=== PATIENT | male | born 2000 | race Caucasian/White ===

== ENCOUNTER 2022-10-10 00:50 | Emergency (ER) | payer OTHER, BC, SELFPAY ==
[2022-10-10 00:52] VITALS: BP 121/72; PULSE 82; RESP 12; TEMP 36.4; O2SAT 99
[2022-10-10] MEDS: levETIRAcetam 1000MG/NACL100ML 1,000 MG/100 ML BAG 400 MG IVPB (01:15)
--- NOTE | 2022-10-10 01:18 | ED.SEIZURE ---
HPI - Seizure General Chief Complaint: Seizure Stated Complaint: seizure Time Seen by Provider: 10/10/22 00:56 History of Present Illness HPI Narrative: Patient is a 22-year-old male with a history of seizure disorder here via EMS after he had a seizure at work. States he had an aura consistent of d?j? vu and strange smells and after that he does not remember anything. The next thing he remembers is waking up with his coworkers surrounding him. Patient takes Keppra 500 mg twice daily but states he has missed several doses, states he is only been taking 500 mg once a day and has not taken any over the past 2 days. States it makes him feel drowsy. Denies fevers, chills, nausea, vomiting, headache, tongue laceration. He has a neurologist but has not seen them for the past year or so. Related Data Allergies Allergy/AdvReac Type Severity Reaction Status Date / Time Penicillins Allergy Mild Unknown Verified 10/10/22 01:14 Cephalosporins Allergy Unknown Rash Verified 10/10/22 01:14 Review of Systems Review of Systems: Gen.: Denies fevers or chills Eyes: Denies eye pain or visual change ENT: Denies congestion Respiratory: Denies shortness of breath or cough CV: Denies chest pain or palpitations GI: Denies abdominal pain nausea, emesis or diarrhea denies burning, urgency, frequency or hematuria Musculoskeletal: Denies back pain or muscle pain Neuro: Reports seizure. Denies numbness, tingling, weakness or focal weakness Skin: Denies rash Except as documented, all other systems reviewed and negative Exam Narrative: APPEARANCE: Well appearing, no pain in distress, well-nourished. Head: Normocephalic and atraumatic. EYES: PERRLA/EOMI, conjunctivae clear NOSE: No nasal drainage EARS: External ear normal in appearance THROAT: No tongue laceration. Oropharynx is clear. Mucous membranes are moist. NECK: Supple. No adenopathy, no masses. RESPIRATORY: Airway patent, respirations nonlabored. Clear to auscultation bilaterally, no rales, rhonchi, wheezing. CARDIOVASCULAR: Regular rate and rhythm without murmurs, rubs, or gallops. ABDOMINAL: Normoactive bowel sounds. Soft, nontender, nondistended. No rebound tenderness or guarding. MUSCULOSKELETAL: Extremities are warm and well-perfused. Moves all extremities well. No edema. NEURO: Normal speech. No focal neurologic deficits. SKIN: Skin is warm and dry. No rashes. PSYCHIATRIC: Normal affect/mood.. Course Vital Signs Vital signs: Vital Signs Temperature 97.5 F L 10/10/22 00:52 Pulse Rate 82 10/10/22 00:52 Respiratory Rate 12 10/10/22 00:52 Blood Pressure 121/72 10/10/22 00:52 Pulse Oximetry 99 10/10/22 00:52 Oxygen Delivery Room Air 10/10/22 00:52 Temperature 97.5 F L 10/10/22 00:52 Pulse Rate 82 10/10/22 00:52 Respiratory Rate 12 10/10/22 00:52 Blood Pressure 121/72 10/10/22 00:52 Pulse Oximetry 99 10/10/22 00:52 Oxygen Delivery Room Air 10/10/22 00:52 MDM - Seizure MDM Narrative Medical decision making narrative: 22-year-old male with a history of epilepsy on 500 mg Keppra twice daily here after he had a seizure. States this is typical for him with his typical aura. Admits to medication noncompliance; has been only taking 500 mg at nighttime instead of twice daily and has skipped several days altogether. Patient was loaded with Keppra. He is alert and oriented and does not appear postictal. He has close outpatient follow-up with his neurologist. We discussed return precautions and he voiced understanding. Discharge Plan Discharge Clinical Impression: Focal seizure Patient Disposition: Home, Self-Care Condition: Stable Instructions: Antibiotic Form, Epilepsy (ED) Additional Instructions: You were given a loading dose of the Keppra in the emergency department. It is very important to take your medicine as prescribed, taking it twice daily to prevent seizures. Follow-up with your neurologist DON. Return
[2022-10-10 02:36] VITALS: BP 111/71; PULSE 71; RESP 19; O2SAT 100
== END 2022-10-10 02:12 | disposition home or self-care (01) ==
LOC: ANHED 01:56
PROVIDERS: Emergency Provider Physician Assistant
DX: G40.109 Localization-related (focal) (partial) symptomatic epilepsy and epileptic syndromes with simple partial seizures, not intractable, without status epilepticus (principal)
CPT/HCPCS: 96365; 99284; J1953

== ENCOUNTER 2022-10-17 16:19 | Emergency (ER) | payer BC, SELFPAY ==
--- NOTE | ~2022-10-17 | XR_ITS ---
EXAMINATION: XR ribs LT 2V w CXR 2V DATE: 10/17/2022 16:49 INDICATION: Left chest injury and pain. TECHNIQUE: Frontal and lateral views of the chest and 2 views on 4 radiographs of the left ribs were obtained. COMPARISON: Chest 2 views 03/18/2019 FINDINGS: CHEST TWO VIEWS: There is no pneumonia, pleural effusion, or pneumothorax. The heart size is normal. LEFT RIBS: There is no rib fracture. IMPRESSION: 1. No rib fracture. Reviewed, dictated and finalized at location A. IMPRESSION: 1. No rib fracture.
[2022-10-17 16:24] VITALS: BP 112/77; PULSE 56; RESP 20; TEMP 36.7; O2SAT 100
--- NOTE | 2022-10-17 16:31 | ED.GENADULT ---
HPI - General Adult General Chief complaint: Trauma Stated complaint: Left Flank Pain/Ribs Source: patient, family and RN notes reviewed History of Present Illness HPI narrative: 22 yo M presents to urgent care with mom at side. pt states a week ago, he was trying to step backward at a diagonal when he fell backwards onto a pallet. Pt states he landed on his left mid back. Pt has been having pain in this area and lateral and anterior, left, lower rib area as well. Pt presents with light bruising to the left, lateral, mid back. Pt states the pain worsens with deep inhalation or any twisting motion of his back. Denies any hematuria, fevers, chills, abdominal pain, vomiting, or head injury. Pt has been taking ibuprofen at home. Related Data Home Medications Medication Instructions Recorded Confirmed levetiracetam 500 mg tablet 1,000 mg PO HS 10/17/22 10/17/22 Allergies Allergy/AdvReac Type Severity Reaction Status Date / Time Penicillins Allergy Mild Unknown Verified 10/17/22 16:31 Cephalosporins Allergy Unknown Rash Verified 10/17/22 16:31 Review of Systems Review of Systems: CONSTITUTIONAL: Denies fever, chills, or sweats. EYES: Denies visual changes, redness, or discharge. ENT: Denies otalgia and sore throat CARDIOVASCULAR: Denies chest pain, palpitations, or edema. RESPIRATORY: Denies cough or dyspnea. GASTROINTESTINAL: Denies abdominal pain, nausea, vomiting, or diarrhea. GENITOURINARY: Denies dysuria or hematuria. SKIN: Denies rash or itching. MUSCULOSKELETAL: Left rib pain NEUROLOGIC: Denies headache, numbness, or weakness. Pertinent positives per HPI. PMFSH Comments At the time of my signature, I reviewed and agree with the nursing past medical, surgical, social, and family history. There is no relevant family history pertinent to the patient complaint. Exam Narrative: GENERAL: This is a well-nourished, well-developed patient, in no apparent distress. HEAD: normocephalic, atraumatic. EYES: Sclera clear/white. Vision is grossly intact. EARS: External ears normal, auditory canals clear and without drainage. Hearing grossly intact. NOSE: External nose normal with no obvious nasal discharge, nares without redness, no rhinorrhea. THROAT: Mucous membranes moist, posterior pharynx clear. NECK: Neck supple, non-tender without lymphadenopathy, masses or thyromegaly. CARDIOVASCULAR: Regular rate and rhythm without murmurs, gallops, or rubs. RESPIRATORY: Clear to auscultation. Breath sounds equal bilaterally. No wheezes, rales, or rhonchi. GASTROINTESTINAL: Abdomen soft, non-tender, nondistended. Bowel sounds are active. No hepato-splenomegaly, or palpable masses. No guarding. SKIN: Old, light, bruising to left mid back NEURO: awake, alert, and oriented to person, place and time. There were no obvious focal neurologic abnormalities. EXTREMITIES: No clubbing, cyanosis, or edema. No joint tenderness, effusion, or edema noted. BACK:Tender to left, mid, back. No flank tenderness. Course Course Level of Care: Express Care Visit Vital Signs Vital signs: Vital Signs Temperature 98.1 F 10/17/22 16:24 Pulse Rate 56 L 10/17/22 16:24 Respiratory Rate 20 10/17/22 16:24 Blood Pressure 112/77 10/17/22 16:24 Pulse Oximetry 100 10/17/22 16:24 Oxygen Delivery Room Air 10/17/22 16:24 Temperature 98.1 F 10/17/22 16:24 Pulse Rate 56 L 10/17/22 16:24 Respiratory Rate 20 10/17/22 16:24 Blood Pressure 112/77 10/17/22 16:24 Pulse Oximetry 100 10/17/22 16:24 Oxygen Delivery Room Air 10/17/22 16:24 reviewed Medical Decision Making MDM Narrative Medical decision making narrative: We will send a urine culture off to the lab; if the culture identifies an organism that the prescribed antibiotic will not treat, you will receive a phone call from an urgent care staff member and an appropriate antibiotic will be prescribed. -Your symptoms should begin to improve within a day of start
== END 2022-10-17 17:15 | disposition home or self-care (01) ==
PROVIDERS: Emergency Provider Nurse Practitioner Family
DX: N39.0 Urinary tract infection, site not specified (principal); S20.212A Contusion of left front wall of thorax, initial encounter; W19.XXXA Unspecified fall, initial encounter
CPT/HCPCS: 71046; 71100; 81003; 87086; 99213; G0463

== ENCOUNTER 2023-02-07 12:36 | Emergency (ER) | payer SELFPAY ==
--- NOTE | ~2023-02-07 | XR_ITS ---
EXAMINATION: XR toe 1st LT min 2V DATE: 02/07/2023 12:58 INDICATION: Left great toe injury and pain. TECHNIQUE: 3 views of left great toe were obtained. COMPARISON: None. FINDINGS: Bone alignment is normal. No fracture. Joint spaces are normal. IMPRESSION: 1. No fracture. Reviewed, dictated and finalized at location A. IMPRESSION: 1. No fracture.
[2023-02-07 12:44] VITALS: BP 114/74; PULSE 68; RESP 20; TEMP 37.1; O2SAT 99
--- NOTE | 2023-02-07 13:03 | ED.LOWEXIN ---
HPI - Extremity Injury (Lower) General Chief Complaint: Extremity Injury, Lower Stated Complaint: left big toe injury Time Seen by Provider: 02/07/23 13:00 Source: patient Mode of arrival: ambulatory Limitations: no limitations History of Present Illness HPI Narrative: Clinton is a 22-year-old male patient presenting to the clinic today with complaints of left great toe pain. He reports he jammed his left great toe against the hinge of a door when he was getting up to urinate early in the morning. This happened 2 days ago. He is complaining of swelling and pain to the proximal great toe joint. Related Data Home Medications Medication Instructions Recorded Confirmed levetiracetam 500 mg tablet 1,000 mg PO HS 10/17/22 02/07/23 Allergies Allergy/AdvReac Type Severity Reaction Status Date / Time Cephalosporins Allergy Severe Other Verified 02/07/23 13:01 Penicillins Allergy Severe Other Verified 02/07/23 13:01 Review of Systems Review of Systems: Pertinent positives per HPI. Patient denies any fever, chills, rash, headache, visual changes, dizziness, cough, runny nose, sore throat, shortness of breath, chest pain, palpitations, nausea, vomiting, diarrhea, constipation, abdominal pain, or any urinary issues. PMFSH Comments At the time of my signature, I reviewed and agree with the nursing past medical, surgical, social, and family history. There is no relevant family history pertinent to the patient complaint. Exam Narrative: General: Well-developed, well nourished, in no apparent distress Head: Normocephalic, atraumatic. Cardio: Regular rate and rhythm, s1 and s2 normal, no murmur appreciated. Resp: Clear to auscultation bilaterally, no rhonchi, rales, wheezing or rubs. Musculoskeletal: No deformity, swelling and tender to palpation over the proximal 1st metatarsal on the left foot, limited range of motion due to pain and swelling, muscle strength strong and equal, peripheral pulse strong, , no cyanosis, normal gait and station Course Course Emergency Course: Portions of this record may have been created with voice recognition software. Level of Care: Express Care Visit Vital Signs Vital signs: Vital Signs Temperature 37.1 C 02/07/23 12:44 Pulse Rate 68 02/07/23 12:44 Respiratory Rate 20 02/07/23 12:44 Blood Pressure 114/74 02/07/23 12:44 Pulse Oximetry 99 02/07/23 12:44 Oxygen Delivery Room Air 02/07/23 12:44 Temperature 37.1 C 02/07/23 12:44 Pulse Rate 68 02/07/23 12:44 Respiratory Rate 20 02/07/23 12:44 Blood Pressure 114/74 02/07/23 12:44 Pulse Oximetry 99 02/07/23 12:44 Oxygen Delivery Room Air 02/07/23 12:44 Vital signs reviewed MDM - Extremity Injury (Lower) MDM Narrative Medical decision making narrative: At the time of visit patient is resting comfortably on the exam table. X-ray of the left great toe was performed and was negative for any sign of fracture or malalignment. I suspect patient has a great toe sprain. Will place the patient a postop shoe and supportive measures were discussed with the patient he voiced understanding discharge instructions agree to the treatment plan Differential Diagnosis Differential diagnosis: Likely fracture of toe and other (Toe sprain) Discharge Plan Discharge Clinical Impression: Sprain of great toe of left foot Patient Disposition: Home, Self-Care Condition: Stable Instructions: Antibiotic Form, Sprain (ED) Additional Instructions: X-rays negative for any sign of fracture. Rest, ice, elevate, and wear postop shoe when ambulating Recommend wearing the postop shoe x1 week Tylenol/motrin for pain as discussed. Gradually bear weight No running or sports until healed. Follow up with your PCP if symptoms persist more than 1 week. Prescriptions: No Action levetiracetam 500 mg tablet 1,000 mg PO HS Follow-up/Referrals: PHYSICIAN,VIDEO PRODUCTION SPECIALIST [Primary Care Provider] -
== END 2023-02-07 13:15 | disposition home or self-care (01) ==
PROVIDERS: Emergency Provider Nurse Practitioner Family
DX: S93.502A Unspecified sprain of left great toe, initial encounter (principal); T14.90XA Injury, unspecified, initial encounter
CPT/HCPCS: 73660; 99213; G0463

== ENCOUNTER 2024-02-14 11:43 | Emergency (ER) | payer OTHER, SELFPAY ==
[2024-02-14 11:50] VITALS: BP 100/64; PULSE 59; RESP 20; TEMP 36.8; O2SAT 100
--- NOTE | 2024-02-14 12:03 | ED.MALEGU ---
HPI - Male Genitourinary General Chief complaint: Urogenital-Male Stated complaint: sick/std Time Seen by Provider: 02/14/24 12:33 Source: patient and RN notes reviewed Mode of arrival: ambulatory Limitations: no limitations History of Present Illness HPI Narrative: 23-year-old male presented for chlamydia exposure 1 month ago. Endorses for the last 3 weeks he has had urinary frequency and urethral pain with urination and after sexual intercourse. Denies urethral discharge or hematuria. Also reports 5 days of cough, sore throat, hoarse voice and congestion. Denies fever, shortness of breath, wheezing, nausea, vomiting or lethargy. Not taking anything for symptoms. Related Data Home Medications Medication Instructions Recorded Confirmed levetiracetam 500 mg tablet 1,000 mg PO HS 10/17/22 02/07/23 Allergies Allergy/AdvReac Type Severity Reaction Status Date / Time Cephalosporins Allergy Severe Other Verified 02/07/23 13:01 Penicillins Allergy Severe Other Verified 02/07/23 13:01 Review of Systems Review of Systems: CONSTITUTIONAL: Denies body aches, fever, chills, or sweats. CARDIOVASCULAR: Denies chest pain, palpitations, or edema. RESPIRATORY: reports cough GASTROINTESTINAL: Denies abdominal pain, nausea, vomiting, or diarrhea. GENITOURINARY: Reports dysuria, frequency, denies urgency, hematuria, flank pain SKIN: Denies rash, itching, or wounds. MUSCULOSKELETAL: Denies back pain or myalgia. PMFSH Comments At time of signature, I have reviewed and agree with nursing past medical, surgical, social and family history unless otherwise noted. Please see nursing chart for further information. There is no relevant family history pertinent to the presenting complaint Exam Narrative: GENERAL: Well-appearing and in no acute distress. ENT: Mucous membranes pink and moist. No pharyngeal erythema or drainage. NECK: Normal AROM. Supple. No lymphadenopathy. CHEST: No respiratory distress. Clear to auscultation. HEART: Regular rate and rhythm. ABDOMEN: Soft, nontender, nondistended, normal active bowel sounds. No CVA tenderness SKIN: Warm, dry, no rash. NEURO: No focal deficits. Alert and oriented x3. Gait steady. PSYCH: Normal affect. Course Course Emergency Course: Patient is aware of diagnosis, understands and agrees to treatment plan. Anticipatory guidance given. Patient agrees to follow-up as directed and is aware of reasons to seek care at the emergency department. Portions of this record may have been created with voice recognition software Level of Care: Express Care Visit Vital Signs Vital signs: Vital Signs Temperature 98.3 F 02/14/24 11:50 Pulse Rate 59 L 02/14/24 11:50 Respiratory Rate 02/14/24 11:50 Blood Pressure 100/64 02/14/24 11:50 Pulse Oximetry 100 02/14/24 11:50 Oxygen Delivery Room Air 02/14/24 11:50 Temperature 98.3 F 02/14/24 11:50 Pulse Rate 59 L 02/14/24 11:50 Respiratory Rate 20 02/14/24 11:50 Blood Pressure 100/64 02/14/24 11:50 Pulse Oximetry 100 02/14/24 11:50 Oxygen Delivery Room Air 02/14/24 11:50 Reviewed MDM - Male Genitourinary MDM Narrative Medical decision making narrative: Patient presenting with concern for STD. Urine specimen collected for GC, chlamydia, trich. Informed Pt will be contacted w/ results when they become available if they are positive. Discussed with patient that it takes up to 7 days for results of cultures to be released and explained that we may treat empirically at this time. Agreeable to treatment for chlamydia at this time. I have instructed the patient to return to the ER at any time if there are any new or worsening symptoms. The patient expressed understanding of and agreement with this plan. Differential Diagnosis Differential diagnosis: Likely urinary tract infection and urethritis Discharge Plan Discharge Clinical Impression: Exposure to sexually transmitted dis
[2024-02-14 19:55] LABS: Trichomonas Vag PCR NOT DETECTED (NOT DETECTE)
[2024-02-14 20:17] LABS: Chlamydia trachomatis DETECTED (NOT DETECTE); Neisseria gonorrhoeae PCR NOT DETECTED (NOT DETECTE)
[2024-02-14 20:20] LABS: Chlamydia trachomatis NOT DETECTED (NOT DETECTE); Neisseria gonorrhoeae PCR NOT DETECTED (NOT DETECTE)
== END 2024-02-14 12:56 | disposition home or self-care (01) ==
PROVIDERS: Emergency Provider Nurse Practitioner Family
DX: Z20.2 Contact with and (suspected) exposure to infections with a predominantly sexual mode of transmission (principal); G40.909 Epilepsy, unspecified, not intractable, without status epilepticus
CPT/HCPCS: 87491; 87591; 87661; 99213; G0463

== ENCOUNTER 2024-11-05 12:45 | Emergency (ER) | payer OTHER, SELFPAY ==
--- OUTSIDE RECORDS SUMMARY | 2024-11-05 12:56 | XMS_ITS | Clinical Summary ---
Author Organization [facility] Address [address] [place] [address] Phone Care Team Providers Care Medicaid Billing Clerk Name Role Phone Heather Cardona PAC Primary Care Pro vider Talha Gonzalez MD Unavailable [phone] Allergies Active Allergy Reactions Criticality Noted Date Comments Cephalosporins Hives,Rash,Swelling High 07/10/2015 Penicillins Hives,Rash,Swelling High 07/10/2015 Medications levETIRAcetam (KEPPRA) 750 MG Tablet Take 1 tablet by mouth twice daily 60 Tablet 5 Active lacosamide (VIMPAT) 100 MG TabletIndicati ons:Seizures (HCC) Take 1 Tablet by mouth 2 times daily. 60 Tablet 2 5 Active levETIRAcetam (KEPPRA) 750 MG Tablet Take 1 Tablet by mouth 2 times daily. 60 Tablet 3 5 025 Discontinued lacosamide (VIMPAT) 100 MG TabletIndicati ons:Seizures (HCC) Take 0.5 Tablets by mouth 2 times daily for 15 days, THEN 1 Tablet 2 times daily for 75 days. 165 Tablet 5 025 ciprofloxacin- dexamethasone (CIPRODEX) 0.3-0.1 % Suspension Place 4 Drops in affected ear(s) every 12 hours for 7 days. 7.5 mL 5 025 doxycycline hyclate (VIBRAMYCIN) 100 MG Capsule Take 1 Capsule by mouth 2 times daily for 7 days. 14 Capsule 5 025 Active Problems No known active problems Encounters Date Type Department Care Team Description 10/28/2024 Refill [facility] [place] [address] [place] [phone] Talha Gonzalez MD Medication Refill 10/25/2024 Refill [facility] Internal [facility] [address] [place] [address] Heather Cardona, TREVON Medication Refill 10/16/2024 Telephone [facility] [address] [place] [phone] Trang Monroy, INSPECTOR AND MENDER, TRUSS DESIGNER 10/15/2024 Telephone [facility] [address] [place] [phone] Trang Monroy, INSPECTOR AND MENDER, TRUSS DESIGNER 10/06/2024 Patient Outreach [facility] Extension Work Instructor Management [address] [place] [id number] Carlee Wallace, [facility] Care Management 10/06/2024 Results Follow-Up [facility] [address] [place] [address] Heather Cardona, TREVON POCT UA NON-AUTOMATED W/O MICRO, CULTURE, URINE, CHLAMYDIA & GC DNA PROBE > 12 10/03/2024 1:30 PM CDT Office Visit [facility] [address] [place] [address] Heather Cardona, TREVON Frequent urination (Primary Dx); Financial difficulties; Potential exposure to STD; Otitis externa of both ears, unspecified chronicity, unspecified type Discharge Disposition: Discharged to home or Selfcare 10/03/2024 Travel 09/05/2024 Telephone [facility] [address] [place] [address] Heather Cardona, TREVON Erroneous Encounter - Disregard 08/15/2024 1:00 PM CDT EEG [facility] [address] [place] [phone] Talha Gonzalez MD Seizures (HCC) Discharge Disposition: Discharged to home or Selfcare 08/15/2024 Travel from Last 3 Months Immunizations Immunization Administration Dates Next Due DTAP VACCINE 12/17/2006, 3,2001,08/02,2001 Hepatitis A Vaccine, Pediatric/adolescent, 2 Dose Schedule 01/07/2013 Hepatitis A, Pediatric, Unsp ecified Formulation 08/01/2011 Hepatitis B Vaccine, Pediatric/adolescent 2001,2001,2001 Hepatitis B Vaccine,unspecif ied Formulation 2001 Hib Vaccine,unspecified Formulation 09/02,2001,2001,05/16 Human Papillomavirus (HPV) 9 -valent Vaccine 03/10/2019,09/13/2015 Inactivated Polio Vaccine 12/17/2006,,2001,05/16 MMR Vaccine 12/17/2006,06/18/2002 Meningococcal MCV4O 03/10/2019,01/07/2013 Pneumococcal Vaccine Peds - 7 Valent 2001, 2001,2001 Pneumococcal Vaccine, Unspec ified Formulation 06/18/2002 TDAP Vaccine 08/01/2011 Varicella Vaccine Live 09/05/2007,04/17/2002 Family History Relation Name Status Comments Father Alive Mother Alive Social History Tobacco Use Types Packs/Day Years Used Date Smoking Tobacco: Never Smokeless Tobacco: Never Tobacco Cessation:Counseling Given: No Alcohol Use Standard Drinks/Week Comments Not Currently 0 (1 standard drink = 0.6 oz pur e alcohol) [facility] Utilities Answer Date Recorded In the past 12 months has [employer] gas, oil, or water [employer] threatened to shut off services in your home? Yes 10/03/2024 Social Connection and Isolat ion Panel [NHANES] Answer Date Recorded In a typical week, how many times do you talk on the phone with family, friends, or neighbors? More than three times a week 10/03/2024 How often do you get togethe r with friends or relatives? Twice a week 10/03/2024 How often do you attend chur ch or oriental orthodox services? 1 to 4 times per year 10/03/2024 Do you belong to any clubs o r organizations such as protestant groups, unions, fraternal or athletic groups, or school groups? Yes 10/03/2024 How often do you attend meet ings of the clubs or organizations you belong to? More than 4 times per year 10/03/2024 Are you , , di vorced, , never , or living with a partner? Patient declined 10/03/2024 AUDIT-C Answer Date Recorded Q1: How often do you have a drink containing alcohol? Never 10/03/2024 Q2: How many drinks containi ng alcohol do you have on a typical day when you are drinking? Patient does not drink Q3: How often do you have si x or more drinks on one occasion? Never 10/03/2024 Overall Financial Resource Strain (CARDIA) Answe r Date Recorded How hard is it for you to pa y for the very basics like food, housing, medical care, and heating? Very hard 10/03/2024 PHQ-2 Answer Date Recorded Total Score - Questions 1-9 18 07/2024 [facility] of Occupat ional Health - Occupational Stress Questionnaire Answer Date Recorded Do you feel stress - tense, restless, nervous, or anxious, or unable to sleep at night because your mind is troubled all the time - these days? Very much 10/03/2024 Exercise Vital Sign Answer Date Recorde d On average, how many days pe r week do you engage in moderate to strenuous exercise (like a brisk walk)? 5 days 10/03/2024 On average, how many minutes do you engage in exercise at this level? 150+ min 10/03/2024 Hunger Vital Sign Answer Date Recorded Within the past 12 months, y ou worried that your food would run out before you got the money to buy more. Often true 10/04/19 25 Within the past 12 months, t he food you bought just didn't last and you didn't have money to get more. Often true 10/03/2024 PRAPARE - Transportation Answer Date Re corded In the past 12 months, has l ack of transportation kept you from medical appointments or from getting medications? Yes 07/2024 In the past 12 months, has l ack of transportation kept you from meetings, work, or from getting things needed for daily living? Yes 10/03/2024 Housing Stability Vital Sign Answer Eliot e Recorded In the last 12 months, was t here a time when you were not able to pay the mortgage or rent on time? Yes 10/03/2024 In the past 12 months, how m any times have you moved where you were living? 0 10/03/2024 At any time in the past 12 m [facility], were you homeless or living in a prison (including now)? No 10/03/2024 Sex and Gender Information Value Date Recorded Sex Assigned at Not on file Legal Sex Male 4:39 PM TUB CHUCKER Gender Identity Not on file Sexual Orientation Not on file Last Filed Vital Signs Vital Sign Reading Time Taken Comments Blood Pressure 106/72 10/03/2024 1:41 PM CDT Pulse 73 07/09/2024 2:55 PM TUB CHUCKER Temperature 36.3 C (97.3 F) 07/09/2024 2:55 PM TUB CHUCKER Respiratory Rate 17 07/09/2024 2:55 PM TUB CHUCKER Oxygen Saturation 99% 07/09/2024 2:55 PM TUB CHUCKER Inhaled Oxygen Concentration - - Weight 62.1 kg (137 lb) 10/03/2024 1:41 PM CDT Height 172.7 cm (5' 8) 07/09/2024 2:55 PM TUB CHUCKER Body Mass Index 20.83 07/09/2024 2:55 PM TUB CHUCKER Plan of Treatment Upcoming Encounters Date Type Department Care Team (Late st Contact Info) Description 11/07/2024 1:30 PM CDT Office Visit [facility] - Internal Medicine - [place] [address] [place] [address] Heather Cardona, PAC [address] [place] [address] 12/01/2024 1:30 PM CDT Office Visit [facility] - [facility]rology - [place] [address] [place] [address] Trang Monroy, INSPECTOR AND MENDER, TRUSS DESIGNER [address] [place] [address] Health Maintenance Due Date Last Done Comments Hepatitis C Virus (HCV) Screening 2001 Meningococcal B Immunization (1 of 2 - Standard) 2017 DTaP/Tdap/Td Immunization (7 - Td or Tdap) 08/01/2021 08/01/2011, 12/17/2006, 09/15/2002, Additional history exists SARS-COV-2 Immunization ( - 2023- season) 2024 Influenza Immunization (Season Ended) 2025 Respiratory Syncytial Virus (RSV) Immunization (Adult) (1 - 1-dose 75+ series) 2076 Hepatitis B Immunization Completed 002, 2001, 2001, Additional history exists Pneumococcal Immunization Combined Aged Out 06/18/2002, 2001, 2001, Additional history exists No longer eligible based on patient's age to complete this topic TdaP Immunization Discontinued 08/01/2011 Human Papillomavirus (HPV) Immunization Completed 03/10/2019, 09/13/2015 Meningococcal Immunization (ACWY) Completed 03/10/2019, 01/07/2013 Rotavirus Immunization Aged Out No lo nger eligible based on patient's age to complete this topic Procedures Procedure Name Priority Date/Time Associated Diagnosis Comments CHLAMYDIA & GC DNA PROBE Routine 10/03/2024 2:35 PM CDT Potential exposure to STD CHLAMYDIA & GC DNA PROBE > 12 Routine 10/03/2024 2:35 PM CDT Potential exposure to STD POCT UA NON-AUTOMATED W/O MICRO Routine 10/03/2024 1:58 PM CDT Frequent urination CULTURE, URINE Routine 10/03/2024 1:56 PM CDT Frequent urination EEG AWAKE OR DROWSY ROUTINE Routine 08/15/2024 1:00 PM CDT Seizures (HCC) from Last 3 Months Results * (ABNORMAL) CHLAMYDIA & GC DNA PROBE > 12 (10/03/2024 2:35 PM CDT) [facility] CHLAMYDIA DNA POSITIVE(A) NEGATIVE 10/05/2024 10:[address] [facility] Comment: Positive for C. trachomatis. Organism viability and/or infectivity cannot be inferred since target DNA may persist in the absence of viable organisms. This test was performed using [employer] 5800 Real Time PCR. Reported to the Department of Public Health. False-positive results have been reported with molecular assays. If these positive results are discordant with clinical findings, repeat testing may be considered after an appropriate interval (at least one month). GC DNA NEGATIVE NEGATIVE 10/05/2024 10:[address] [facility] Comment: Presumed negative for N. gonorrhoeae. A negative result does not preclude N. gonorrhoeae infection because results are dependent on adequate specimen collection, absence of inhibitors, and sufficient DNA to be detected. This test was performed using [employer] 5800 Real Time PCR. Other URINE / Unknown Non-Phlebotomy Collection / Unknown 10/03/2024 2:35 PM CDT 10/03/2024 2:35 PM CDT us Heather Cardona [facility] MICROBIOLOGY - NERAL ORDERABLES Final Result [facility] [address] [place] [address], * (ABNORMAL) POCT UA NON-AUTOMATED W/O MICRO (10/03/2024 1:58 PM CDT) [facility] POC UA SPECIFIC GRAVITY 1.015 URINE PH 6.0 5.0 - 9.0 UR, LEUKOCYTES + Small(A) Negative Albin/uL POC URINE NITRITE Negative Negative UR, PROTEIN Negative Negative mg/dL UR, GLUCOSE Normal Negative, Normal mg/dL UR, KETONE Negative Negative mg/dL UR, UROBILINOGEN Norm Norm, 0.2 mg/dL, 1.0 mg/dL mg/dL UR, BILIRUBIN Negative Negative mg/dL POC URINE BLOOD (NON HEMOLYZED) Negative not applicable, Negative Porter/uL POC URINE HEMOGLOBIN (BLOOD HEMOLYZED Negative Negative, not applicable Porter/uL POC URINE COLOR Yellow POC URINE CLARITY Hazy 10/03/2024 1:58 PM CDT Heather Cardona PAC POINT OF CARE TOBIAS TING (MANUAL) Final Result * CULTURE, URINE (10/03/2024 1:56 PM CDT) CULTURE RESULTS No growth final 10/05/2024 10:[address] [facility] Culture URINE SPECIMEN OBTAINED BY CLEAN CATCH PROCEDURE / Unknown Non-Phlebotomy Collection / Unknown 10/03/2024 1:56 PM CDT 10/03/2024 1:56 PM CDT [facility] Trang Cardona [facility] MICROBIOLOGY - GE NERAL ORDERABLES Final Result [facility] [address] [place] [address], * EEG AWAKE OR DROWSY ROUTINE (08/15/2024 1:00 PM CDT) Narrative Talha Gonzalez MD - 08/15/2024 1:00 PM CDT Talha Gonzalez MD 08/18/2024 3:46 PM Electroencephalography Date of EE08/15/24 Clinical History: The patient is a 24 year old amale who has been experiencing episodes of seizure. EEG Description: This EEG was recorded on a [place] with 18 cranial leads and an EKG. The International 10-20 system was used for electrode placement. Background: The recording was done during wakefulness and drowsiness. There was a normal 9-10 hz posterior dominant rhythm, with a normal posterior to anterior gradient. Sleep: No sleep architecture noted. Activation Procedures: Photic stimulation shows good driving. Hyperventilation produced no epileptic discharges. Epileptic Discharges: No epileptic discharges noted. Interpretation: This is a normal EEG during wakefulness and drowsiness. No epileptic discharges were seen. A normal EEG does not rule out seizure and clinical correlation is recommended, us Talha Gonzalez MD NEUROLOGY ORDERABLES Final R esult from Last 3 Months Insurance [facility] Care Teams Medicaid Billing Clerk Relationship Specialty Start Date End Date Heather Cardona PAC [address] [place] [address] PCP - General Physician Support Assistant 05/09/24 Talha Gonzalez MD [address] [place] [address] Consulting Physician Neurology 07/09/24
--- OUTSIDE RECORDS SUMMARY | 2024-11-05 12:56 | XMS_ITS | Encounter Summary ---
Author Organization [facility] Address [address] [place] [address] Phone Care Team Providers Care Continuity Tester Name Role Phone BrendanHeatherelle PAC Primary Care Pro vider Talha Gonzalez MD Unavailable [phone] Carlee Wallace DEVELOPMENT ASSISTANT Unavailable Unavailab le Reason for Visit * Reason Comments Medication Refill Encounter Details Date Type Department Care Team (Late st Contact Info) Description 07/31/2024 Refill [facility] - [facility] [address] [place] [address] Talha Gonzalez MD [address] [place] [address] Medication Refill Social History Tobacco Use Types Packs/Day Years Used Date Smoking Tobacco: Never Smokeless Tobacco: Never Alcohol Use Standard Drinks/Week Comments Not Currently 0 (1 standard drink = 0.6 oz pur e alcohol) [facility] Utilities Answer Date Recorded In the past 12 months has [employer] electric, gas, oil, or water company threatened to shut off services in your home? Yes 05/09/2024 Social Connection and Isolat ion Panel [NHANES] Answer Date Recorded In a typical week, how many times do you talk on the phone with family, friends, or neighbors? More than three times a week 05/09/2024 How often do you get togethe r with friends or relatives? More than three times a week 05/09/2024 How often do you attend chur ch or synagogue services? Patient declined 05/09/2024 Do you belong to any clubs o r organizations such as caodaism groups, unions, fraternal or athletic groups, or school groups? No 05/09/2024 How often do you attend meet ings of the clubs or organizations you belong to? Patient declined 05/09/2024 Are you , , di vorced, , never , or living with a partner? Patient declined 05/09/2024 AUDIT-C Answer Date Recorded Q1: How often do you have a drink containing alc ohol? Monthly or less 05/09/2024 Q2: How many drinks containi ng alcohol do you have on a typical day when you are drinking? 1 or 2 05/09/2024 Q3: How often do you have si x or more drinks on one occasion? Never 05/09/2024 Overall Financial Resource Strain (CARDIA) Answe r Date Recorded How hard is it for you to pa y for the very basics like food, housing, medical care, and heating? Very hard 05/09/2024 PHQ-2 Answer Date Recorded Total Score - Questions 1-9 8 11/2023 [facility] [place] of Occupat ional Health - Occupational Stress Questionnaire Answer Date Recorded Do you feel stress - tense, restless, nervous, or anxious, or unable to sleep at night because your mind is troubled all the time - these days? Very much 05/09/2024 Exercise Vital Sign Answer Date Recorde d On average, how many days pe r week do you engage in moderate to strenuous exercise (like a brisk walk)? 7 days 05/09/2024 On average, how many minutes do you engage in exercise at this level? 150+ min 05/09/2024 Hunger Vital Sign Answer Date Recorded Within the past 12 months, y ou worried that your food would run out before you got the money to buy more. Often true 05/09/20 24 Within the past 12 months, t he food you bought just didn't last and you didn't have money to get more. Often true 05/09/2024 PRAPARE - Transportation Answer Date Re corded In the past 12 months, has l ack of transportation kept you from medical appointments or from getting medications? No 11/2023 In the past 12 months, has l ack of transportation kept you from meetings, work, or from getting things needed for daily living? No 05/09/2024 Housing Stability Vital Sign Answer Eliot e Recorded In the last 12 months, was t here a time when you were not able to pay the mortgage or rent on time? Yes 05/09/2024 In the past 12 months, how m any times have you moved where you were living? 0 05/09/2024 At any time in the past 12 m [facility], were you homeless or living in a halfway (including now)? No 05/09/2024 Sex and Gender Information Value Date Recorded Sex Assigned at Not on file Legal Sex Male 4:39 PM GIS PHYSICAL SCIENTIST Gender Identity Not on file Sexual Orientation Not on file documented as of this encounter Plan of Treatment Upcoming Encounters Date Type Department Care Team (Late st Contact Info) Description 11/07/2024 1:30 PM CDT Office Visit [facility] - [facility] [address] [place] [address] Heather Cardona, TREVON [address] [place] [address] 12/01/2024 1:30 PM CDT Office Visit [facility] - Neurology [facility] [address] [place] [address] Trang Monroy APRN, WAREHOUSE OPERATIONS MANAGER [address] [place] [address] documented as of this encounter Visit Diagnoses Diagnosis Seizures (HCC) Other convulsions documented in this encounter Additional Health Concerns Assessment Noted Time PHQ-9 Depression Total Score: 8 05/09/20 24 2:10 PM GIS PHYSICAL SCIENTIST documented as of this encounter Care Teams Continuity Tester Relationship Specialty Start Date End Date Heather Cardona, TREVON [address] [place] [address] PCP - General Physician Fire Safety Inspector 05/09/24 Talha Gonzalez MD [address] [place] [address] Consulting Physician Neurology 07/09/24 Carlee Wallace LSW [place] Washhouse Worker Newspaper Columnist 10/06/24 10/09/24 documented as of this encounter
--- OUTSIDE RECORDS SUMMARY | 2024-11-05 12:56 | XMS_ITS | Clinical Summary ---
Author Organization [facility] Address [address] [place] [address] Care Team Providers Care Drop Clipper Name Role Phone No, Physician Primary Care Provider [phone] Allergies Active Allergy Reactions Criticality Noted Date Comments Cephalosporins Hives,Rash,Swelling High 07/10/2015 Penicillins Hives,Rash,Swelling High 07/10/2015 Medications carBAMazepine ER (CARBATROL) 100 mg 12 hr capsule Take one capsule twice a day for one week, then take two capsules twice a day. 120 capsule 3 12/04/2023 Active clindamycin (CLEOCIN) 150 mg capsule Take 1 capsule (150 mg total) by mouth every 6 (six) hours 28 capsule 01/12/2024 Active ibuprofen (ADVIL,MOTRIN) 600 mg tablet Take 1 tablet (600 mg total) by mouth every 6 (six) hours as needed for pain 30 tablet 01/12/2024 Active levETIRAcetam (KEPPRA) 750 mg tablet Take 1 tablet (750 mg total) by mouth 2 (two) times a day 60 tablet 11 03/01/2024 03/01/20 25 Active levETIRAcetam (KEPPRA) 750 mg tablet Take 1 tablet (750 mg total) by mouth 2 (two) times a day 60 tablet 3 03/14/2024 Active Active Problems Problem Noted Date Diagnosed Date Seizure 07/06/2021 Overview (07/08/2021): Patient presented to the emergency department for seizure-like activity. Seizure activity over the last 2-[address] while sleeping and awake. These were witnessed by his girlfriend who reports that he had jerking like motions with arms at weird angles to his head. One seizure occurred while in car with girlfriend. Patient believes possibly bright headlights could be the cause. Patient admits to anxiety with increased stress. He believes this could also be triggering episodes. Patient has no memory of the incidence, but does have postictal. With extreme confusion and fatigue. Cognitive function decline for days/weeks after incident. Per patient he thinks he may have started to have partial seizures as early as high school. Patient denies use of alcohol or illicit drug. Does admit to self medicating with marijuana habitually. No family history of seizures, never been on seizure medication. Assessment & Plan (07/08/2021 4:47 PM BRUSH HEAD MAKER): Change to Keppra Po 1000 mg b.i.d. and continue on discharge 07/06/2021 CT of head unremarkable for acute intracranial abnormality, 07/08/21 - EEG to look for epileptiform discharge pattern: Will follow-up with neurologist as outpatient for results 07/08/21 - MRI Head w/wo- no acute intracranial abnormality or structural finding to explain seizures. Few punctate foci of white matter gliosis that are not significantly changed from 2019 given differences in technique. Nonspecific but can be seen in the setting of seizures. Patient will need to follow seizure precautions: No driving, operating heavy machinery. Will need to follow up with Neurology on discharge Leukocytosis 07/06/2021 Assessment & Plan (07/07/2021 5:44 PM BRUSH HEAD MAKER): Slight leukocytosis at 15.4 Most likely reactive due to seizure activity, no signs of infection, patient afebrile Will continue to follow with daily CBCs Marijuana smoker 07/06/2021 Assessment & Plan (07/07/2021 5:44 PM BRUSH HEAD MAKER): Daily marijuana smoker 1 to 2 times a day at minimum Patient reports using to self medicate for possible seizure disorder Resolved Problems Problem Noted Date Diagnosed Date Resolved Date Lactic acidosis 07/06/2021 07/08/2021 Assessment & Plan (07/07/2021 5:43 PM BRUSH HEAD MAKER): Patient had elevated sepsis lactate on admission 10.7, has resolved 0.9 at this time Blood sugars, CO2 and anion gap within normal limits Immunizations Immunization Administration Dates Next Due DTaP 12/17/2006, 3,2001,08/02,2001 HPV9 03/10/2019,09/13/2015 Hep A, Ped Unspecified 08/01/2011 Hep A, Pediatric 01/07/2013 Hep B, Adolescent or Pediatric 2001,2000,2001 Hep B, Unspecified 2001 HiB 09/15/2002, 2,2001,05/16 IPV 12/17/2006, 3,2001,05/16 Influenza, Quadrivalent, Spl it, Preservative Free, Intramuscular 02/26/2018 MMR 12/17/2006,06/18/2002 Meningococcal Conjugate (Menveo) 03/10/2019,08/0 11/2012 Pneumococcal Conjugate 7-Valent 2001,08/02,2001 Pneumococcal, Unspecified 06/18/2002 Tdap 08/01/2011 Varicella 09/05/2007,04/17/2002 Social History Tobacco Use Types Packs/Day Years Used Date Smoking Tobacco: Never Alcohol Use Standard Drinks/Week Comments Not Currently 0 (1 standard drink = 0.6 oz pur e alcohol) Personal Safety Answer Date Recorded Have you ever been in or are you currently in a harmful physical or emotional relationship or is someone making you feel afraid or unsafe? Denies 06/25/2024 Sex and Gender Information Value Date Recorded Sex Assigned at Not on file Legal Sex Male 8:59 PM BRUSH HEAD MAKER Gender Identity Not on file Sexual Orientation Not on file Obstetrics History Last Filed Vital Signs Vital Sign Reading Time Taken Comments Blood Pressure 111/80 06/25/2024 10:30 PM BRUSH HEAD MAKER Pulse 71 06/25/2024 10:30 PM BRUSH HEAD MAKER Temperature 36.7 C (98 F) 06/25/2024 3:08 PM BRUSH HEAD MAKER Respiratory Rate 16 06/25/2024 3:08 PM BRUSH HEAD MAKER Oxygen Saturation 95% 06/25/2024 10:30 PM BRUSH HEAD MAKER Inhaled Oxygen Concentration - - Weight 61.2 kg (135 lb) 06/25/2024 3:08 PM BRUSH HEAD MAKER Height 172.7 cm (5' 8) 03/01/2024 2:37 PM CDT Body Mass Index 20.53 03/01/2024 2:37 PM CDT Plan of Treatment Health Maintenance Due Date Last Done Comments Depression Screening 2001 Hepatitis C Screening 2001 Meningococcal B Vaccine (1 o f 2 - Standard) 2017 Regular Well Visit/Exam 18-64 2019 DTaP/Tdap/Td Vaccine (7 - Td or Tdap) 08/01/2021 08/01/2011, 12/17/2006, 09/15/2002, Additional history exists Influenza Vaccine (Season Ended) 2025 02/27/20 18 Hepatitis B Screening Completed 2001 , 2001, 2001, Additional history exists Pneumococcal vaccine <65 Completed 003, 2001, 2001, Additional history exists Varicella Vaccines Completed 09/05/2007, 04/17/2002 HPV Vaccines Completed 03/10/2019, 09/13/2015 Insurance [facility] Advance Directives For more information, please contact: [phone] * Full Code (Latest Code Status on File) Date Activated Date Inactivated Comments 07/06/2021 6:23 PM 07/08/2021 9:43 PM Care Teams Drop Clipper Relationship Specialty Start Date End Date No, Physician PCP - General 03/01/24
--- OUTSIDE RECORDS SUMMARY | 2024-11-05 12:56 | XMS_ITS | Referral Summary ---
Author Organization [facility] Address [address] [place] [address] Care Team Providers Care Drapery Maker Name Role Phone No, Physician Primary Care Provider [phone] Allergies Active Allergy Reactions Criticality Noted Date [...] medication. Assessment & Plan (07/08/2021 4:47 PM RADIO NEWS WRITER): Change to Keppra Po 1000 mg b.i.d. [...] 07/06/2021 Assessment & Plan (07/07/2021 5:44 PM RADIO NEWS WRITER): Slight leukocytosis at 15.4 Most likely reactive due to seizure activity, no signs of infection, patient afebrile Will continue to follow with daily CBCs Marijuana smoker 07/06/2021 Assessment & Plan (07/07/2021 5:44 PM RADIO NEWS WRITER): Daily marijuana smoker 1 to 2 times a day at minimum Patient reports using to self medicate for possible seizure disorder Resolved Problems Problem Noted Date Diagnosed Date Resolved Date Lactic acidosis 07/06/2021 07/08/2021 Assessment & Plan (07/07/2021 5:43 PM RADIO NEWS WRITER): Patient had elevated sepsis lactate on admission [...] on file Legal Sex Male 8:59 PM RADIO NEWS WRITER Gender Identity Not on file Sexual Orientation Not on file Last Filed Vital Signs Vital Sign Reading Time Taken Comments Blood Pressure 111/80 06/25/2024 10:30 PM RADIO NEWS WRITER Pulse 71 06/25/2024 10:30 PM RADIO NEWS WRITER Temperature 36.7 C (98 F) 06/25/2024 3:08 PM RADIO NEWS WRITER Respiratory Rate 16 06/25/2024 3:08 PM RADIO NEWS WRITER Oxygen Saturation 95% 06/25/2024 10:30 PM RADIO NEWS WRITER Inhaled Oxygen Concentration - - Weight 61.2 kg (135 lb) 06/25/2024 3:08 PM RADIO NEWS WRITER Height 172.7 cm (5' 8) 03/01/2024 2:37 PM CDT Body Mass Index 20.53 03/01/2024 2:37 PM CDT Plan of Treatment Not on file Insurance [facility] Advance Directives For more information, please contact: [phone] * Full Code (Latest Code Status on File) Date Activated Date Inactivated Comments 07/06/2021 6:23 PM 07/08/2021 9:43 PM Care Teams Drapery Maker Relationship Specialty Start Date End Date No, Physician PCP - General 03/01/24
--- OUTSIDE RECORDS SUMMARY | 2024-11-05 12:56 | XMS_ITS | Continuity of Care Document ---
Author Organization [facility] Address [address] [facility] [address] [place] [address] Phone Care Team Providers Care Site Head Name Role Phone Aragon OD, Catalino Unavailable Unavailable Advance Directives Directive Yes / No Effective Date File Name No Information Encounters Encounter Description Practice Location Reason(s) For Visit Diagnoses Date Provider Providers Copied on Encounter [facility], [address] [place] [address] [address], [place], [place], [id number], [place] tel:[phone] [facility] No Information Mar-2 9-200 6 Aragon OD Catalino. [address] , [address], [place], [address], [place]. tel:[phone] Family History Family Member Type Diagnosis Age At Onset No Information Payers Payer name Insurance type Covered green party ID Authoriza tion(s) Medicaid [facility] [id number] Social History Type Description Quantity Date Captured [...]
--- OUTSIDE RECORDS SUMMARY | 2024-11-05 12:58 | XMS_ITS | Continuity of Care Document ---
Author Organization [facility] Address [address] [facility] [address] [place] [address] Phone Care Team Providers Care Cane Loader Name Role Phone Aragon OD, Catalino Unavailable Unavailable Advance Directives Directive Yes / No Effective Date File Name No Information Encounters Encounter Description Practice Location Reason(s) For Visit Diagnoses Date Provider Providers Copied on Encounter [facility], [address] [place] [address] [address], [place], [place], [id number], [place] tel:[phone] [facility] No Information Mar-2 9-200 6 Aragon OD Catalino. [address] , [address], [place], [address], [place]. tel:[phone] Family History Family Member Type Diagnosis Age At Onset No Information Payers Payer name Insurance type Covered republican ID Authoriza tion(s) Medicaid [facility] [id number] Social History Type Description Quantity Date Captured [...]
[2024-11-05 13:00] VITALS: BP 115/67; PULSE 62; RESP 20; TEMP 36.4; O2SAT 99
--- NOTE | 2024-11-05 13:15 | ED.SKABFB ---
HPI - Skin/Abscess/Foreign Bdy General Chief complaint: Skin/Abscess/Foreign Body Stated complaint: ingrown hair Source: patient Mode of arrival: ambulatory Limitations: no limitations History of Present Illness HPI narrative: Patient is a 24 year old male who presents to the clinic with complaints of an ingrown hair to his genital area x 2 days. He states he has had these before. Denies concern for herpes as he was tested three months ago. Denies any other concern for STDs. Related Data Home Medications ?Medication ?Instructions ?Recorded ?Confirmed ?Last Taken ?Type levetiracetam 500 mg tablet 1,000 mg PO HS 10/17/22 02/07/23 Unknown History lacosamide 100 mg tablet mg 11/05/24 Unknown History Allergies Allergy/AdvReac Type Severity Reaction Status Date / Time Cephalosporins Allergy Severe Other Verified 11/05/24 13:03 Penicillins Allergy Severe Other Verified 11/05/24 13:03 Review of Systems Review of Systems: CONSTITUTIONAL: Denies body aches, fever, chills, or sweats. EYES: Denies visual changes, redness, or discharge. ENT: Denies rhinorrhea, congestion CARDIOVASCULAR: Denies chest pain, palpitations, or edema. RESPIRATORY: Denies cough or dyspnea. GASTROINTESTINAL: Denies abdominal pain, nausea, vomiting, or diarrhea. SKIN: ?Reports ingrown hair to genital area. MUSCULOSKELETAL: Denies back pain, joint pain, or myalgia. NEUROLOGIC: Denies headache, numbness, tingling, or weakness. All systems reviewed & are unremarkable except as noted in HPI and below PMFSH Comments At time of signature, I have reviewed and agree with nursing past medical, surgical, social and family history unless otherwise noted. Please see nursing chart for further information. There is no relevant family history pertinent to the presenting complaint. Exam Narrative: GENERAL: Well-appearing HEAD: Normocephalic, atraumatic. EYES: ?conjunctivae clear, and EOMI. ENT: Mucous membranes moist. Oropharynx without edema, erythema or lesions. NECK: Supple. No lymphadenopathy CHEST: Clear to auscultation. HEART: Regular rate and rhythm. SKIN: Warm, dry. Two pinpoint raised, erythemic skin lesions noted to penial shaft. Nontender. NEURO: ?Alert and oriented x3.? Course Course Level of Care: Express Care Visit Vital Signs Vital signs: Vital Signs Temperature 97.6 F 06/04/25 13:00 Pulse Rate 62 11/05/24 13:00 Respiratory Rate 20 11/05/24 13:00 Blood Pressure 115/67 11/05/24 13:00 Pulse Oximetry 99 11/05/24 13:00 Oxygen Delivery Room Air 11/05/24 13:00 Temperature 97.6 F 11/05/24 13:00 Pulse Rate 62 11/05/24 13:00 Respiratory Rate 20 11/05/24 13:00 Blood Pressure 115/67 11/05/24 13:00 Pulse Oximetry 99 11/05/24 13:00 Oxygen Delivery Room Air 11/05/24 13:00 Reviewed MDM - Skin/Abscess/Foreign Bdy MDM Narrative Medical decision making narrative: Discussed physical exam findings. Antibiotic given for skin infection. Advised supportive measures and signs/symptoms to go to the ER. Pt is appropriate for outpatient treatment and follow up. Differential Diagnosis Differential diagnosis: Likely abscess of skin or subcutaneous tissue, herpes zoster, cellulitis, insect bites and contact dermatitis Critical Care Time Critical Care Time Critical Care Time: No Discharge Plan Discharge Clinical Impression: Skin lesion Patient Disposition: Home Condition: Stable Instructions: Antibiotic Form, Genital Herpes Infection (ED) Additional Instructions: Take antibiotic as prescribed Keep area clean and dry. Please follow-up with your PCP for further evaluation and treatment. If your symptoms worsen or do not go away please go ER immediately. Patient Language: Belarusian Prescriptions: New doxycycline hyclate 100 mg capsule 100 mg PO BID 7 Days Qty: 14 0RF No Action lacosamide 100 mg tablet levetiracetam 500 mg tablet 1,000 mg PO HS Follow-up/Referrals: Brendan,ANDRES Romero [Primary Care Provider] - Stand Alone Forms: Work/School Release IP Time of Disposition: 13:22
== END 2024-11-05 13:26 | disposition home or self-care (01) ==
PROVIDERS: PCP Physician Assistant
DX: L98.9 Disorder of the skin and subcutaneous tissue, unspecified (principal); G40.909 Epilepsy, unspecified, not intractable, without status epilepticus
CPT/HCPCS: 99213; G0463

== ENCOUNTER 2025-02-13 08:12 | Emergency (ER) | payer OTHER, SELFPAY ==
--- OUTSIDE RECORDS SUMMARY | 2005-08-30 10:00 | XMS_ITS | Continuity of Care Document ---
Author Organization [facility] Address [address] [facility] [address] [place] [address] Phone Care Team Providers Care Chute Builder Name Role Phone Aragon OD, Catalino Unavailable Unavailable Advance Directives Directive Yes / No Effective Date File Name No Information Encounters Encounter Description Practice Location Reason(s) For Visit Diagnoses Date Provider Providers Copied on Encounter [facility], [id number] [place] [address] [address], [place], [place], [id number], [place] tel:[phone] [facility] No Information Mar-2 9-200 6 Aragon OD Catalino. [address] , [address], [place], [address], [place]. tel:[phone] Family History Family Member Type Diagnosis Age At Onset No Information Payers Payer name Insurance type Covered democrat ID Authoriza tion(s) Medicaid [facility] [id number] Social History Type Description Quantity Date Captured Comments Sex Male Smoking Status No Information Chief Complaint And Reason For Visit No Information Reason For Referral Reason For Referral No Information History Of Present Illness Encounter Date Complaint History Of Prese nt Illness No Information Functional Status Date Functional Assessmen t No Information Instructions Date Instruction Additional Infor mation No Information Assessments Type Assessment Date No Information Patient Care Teams Name Effective Dates (start - stop) Status Members No Information
[2025-02-13 08:15] VITALS: BP 137/81; PULSE 103; RESP 22; O2SAT 94
--- NOTE | 2025-02-13 08:15 | ED.GENADULT ---
HPI - General Adult General Chief complaint: Shortness of Breath/Dyspnea Stated complaint: Can't Breathe Source: patient Mode of arrival: ambulatory Limitations: no limitations History of Present Illness HPI narrative: 24-year-old male with history of asthma presented for complaint of I can not breathe. Reports pain to chest with deep breaths, and chest feels tight. Endorses feeling sick for about 3 days With nasal congestion, cough, and shortness of breath. Endorses fever yesterday. Says he could not sleep due to coughing. Has not taken anything for symptoms. He says he lost his inhaler 10 years ago. Patient vapes. Related Data Home Medications ?Medication ?Instructions ?Recorded ?Confirmed ?Last Taken ?Type lacosamide 100 mg tablet mg 11/05/24 Unknown History brivaracetam 100 mg tablet mg PO 02/13/25 Unknown History (Briviact) Allergies Allergy/AdvReac Type Severity Reaction Status Date / Time Cephalosporins Allergy Severe Other Verified 02/13/25 08:23 Penicillins Allergy Severe Other Verified 02/13/25 08:23 Review of Systems Review of Systems: CONSTITUTIONAL: Denies body aches, reports fever EYES: Denies visual changes, redness, or discharge. ENT: reports rhinorrhea, congestion,Denies sore throat, or otalgia. CARDIOVASCULAR: Denies chest pain, palpitations, or edema. RESPIRATORY: Reports cough, sob, wheezing. GASTROINTESTINAL: Denies abdominal pain, nausea, vomiting, or diarrhea. NEUROLOGIC: Denies headache, numbness, tingling, or weakness. All systems reviewed & are unremarkable except as noted in HPI and below PMFSH Past Medical History Medical History (Updated 02/13/25 @ 08:53 by Yesica Jeff, STEPHANIE) Asthma Comments At time of signature, I have reviewed and agree with nursing past medical, surgical, social and family history unless otherwise noted. Please see nursing chart for further information. There is no relevant family history pertinent to the presenting complaint Exam Narrative: GENERAL: Well-appearing, in no acute distress. EYES: EOMI. No redness or drainage. Conjunctivae normal. ENT: Mucous membranes pink and moist. NECK: Normal AROM. Supple. CHEST: No respiratory distress. Lungs Decreased and Wheezing to all suggs. Speaks full sentences. HEART: Regular rate and rhythm. No murmur appreciated. ABDOMEN: Soft, nontender, nondistended, normal active bowel sounds. SKIN: Warm, dry, no rash. Capillary refill normal. Normal skin turgor. NEURO: Alert and oriented x3. Gait steady. PSYCH: Normal affect. Course Course Emergency Course: Patient is aware of diagnosis, understands and agrees to treatment plan. Anticipatory guidance given. Patient agrees to follow-up as directed and is aware of reasons to seek care at the emergency department. Portions of this record may have been created with voice recognition software Level of Care: Express Care Visit Vital Signs Vital signs: Vital Signs Pulse Rate 103 H 02/13/25 08:15 Respiratory Rate 22 H 02/13/25 08:15 Blood Pressure 137/81 02/13/25 08:15 Pulse Oximetry 94 02/13/25 08:15 Oxygen Delivery Room Air 02/13/25 08:15 Pulse Rate 104 H 02/13/25 08:41 Respiratory Rate 22 H 02/13/25 08:41 Blood Pressure 137/81 02/13/25 08:15 Pulse Oximetry 96 02/13/25 08:41 Oxygen Delivery Room Air 02/13/25 08:15 Medical Decision Making MDM Narrative Medical decision making narrative: Discussed physical exam findings. Reassessed after Duoneb, O2 sat 96%. Lungs clear. Reports improvement in breathing. Advised supportive measures and signs/symptoms to go to the ER. Pt is appropriate for outpt treatment and f/u. Differential Diagnosis Differential Diagnosis: bronchitis influenza, covid, sinusitis, OM, strep pharyngitis, URI Vital Signs Vital Signs: Vital Signs Pulse Rate 103 H 02/13/25 08:15 Respiratory Rate 22 H 02/13/25 08:15 Blood Pressure 137/81 02/13/25 08:15 Pulse Oximetry 94 02/13/25 08:15 Oxygen Delivery Room Air 02/13/25 08:15 Pulse Rate 104 H 02/13/25 08:41 Respiratory Rate 22 H 02/13/25 08:41 Blood Pressure 137/81 02/13/25 08:15 Pulse Oximetry 96 02/13/25 08:41 Oxygen Delivery Room Air 02/13/25 08:15 Lab Data Labs: Lab Results 02/13/25 Range/Units 08:39 POC Influenza A Ag Negative (Negative) POC Influenza B Ag Negative (Negative) POC SARS CoV-2 Ag Negative (Negative) Discharge Plan Discharge Clinical Impression: Asthma with exacerbation Patient Disposition: Home Condition: Stable Instructions: Antibiotic Form, Asthma (ED) Additional Instructions: Acute bronchitis can be contagious because it is usually caused by infection with a virus or bacteria. It is usually for a few days but you can be contagious for up to one week. Avoid crowds until you do not have a fever and symptoms are improved Take medication as directed Recommendations: Flonase spray and Zyrtec (or Claritin/Kay) if you have nasal congestion over the counter Cough syrup may cause drowsiness; avoid driving or take it at night time. Tylenol every 8 hours as needed for pain Symptomatic treatment includes: rest, fluids, and increase humidity of the air at home. Follow up with your primary care provider as needed in 1 week Go to the ER for worsening symptoms or concerns Patient Language: Romanian Prescriptions: New benzonatate 200 mg capsule 200 mg PO TID PRN (Reason: cough) Qty: 20 0RF Airsupra 90-80 mcg/actuation HFA aerosol inhaler 2 inh inhalation ONCE Qty: 10.7 2RF Rx Instructions: may repeat up to 6 doses per day (12 puffs in 24 hours) prednisone 20 mg tablet 20 mg PO DAILY Qty: 12 0RF Rx Instructions: take 3 tablets daily for 2 days, then 2 tablets daily for 2 days then 1 tablet daily for 2 days No Action lacosamide 100 mg tablet Briviact 100 mg tablet PO Follow-up/Referrals: PHYSICIAN,CONTENT DEVELOPMENT MANAGER [Primary Care Provider, Internal Medicine] Time of Disposition: 08:56
--- OUTSIDE RECORDS SUMMARY | 2025-02-13 08:16 | XMS_ITS | Clinical Summary ---
Author Organization [facility] Address [address] [place] [address] Care Team Providers Care Assistant Purchasing Manager Name Role Phone Miscellaneous, Not In File Primary Care Provider Unavailable Allergies Active Allergy Reactions Criticality Noted Date [...] a day 60 tablet 3 03/14/2024 Active lacosamide (VIMPAT) 200 mg tablet Take 1 tablet (200 mg total) by mouth 2 (two) times a day 60 tablet 01/21/2025 02/21/20 25 Active Active Problems Problem Noted Date Diagnosed [...] medication. Assessment & Plan (07/08/2021 4:47 PM REAL ESTATE MARKETING COORDINATOR): Change to Keppra Po 1000 mg b.i.d. [...] 07/06/2021 Assessment & Plan (07/07/2021 5:44 PM REAL ESTATE MARKETING COORDINATOR): Slight leukocytosis at 15.4 Most likely reactive due to seizure activity, no signs of infection, patient afebrile Will continue to follow with daily CBCs Marijuana smoker 07/06/2021 Assessment & Plan (07/07/2021 5:44 PM REAL ESTATE MARKETING COORDINATOR): Daily marijuana smoker 1 to 2 times a day at minimum Patient reports using to self medicate for possible seizure disorder Resolved Problems Problem Noted Date Diagnosed Date Resolved Date Lactic acidosis 07/06/2021 07/08/2021 Assessment & Plan (07/07/2021 5:43 PM REAL ESTATE MARKETING COORDINATOR): Patient had elevated sepsis lactate on admission 10.7, has resolved 0.9 at this time Blood sugars, CO2 and anion gap within normal limits Encounters Date Type Department Care Team Description 01/21/2025 3:16 PM CDT - 01/21/2025 4:04 PM CDT Emergency [facility] Emergency Department [address] [place] [address] Breakthrough seizure (HCC) (Primary Dx) Discharge Disposition: Discharge to home or self care from Last 3 Months Immunizations Immunization Administration Dates Next Due DTaP [...] making you feel afraid or unsafe? Denies 01/21/2025 Sex and Gender Information Value Date Recorded Sex Assigned at Not on file Legal Sex Male 8:59 PM REAL ESTATE MARKETING COORDINATOR Gender Identity Not on file Sexual Orientation Not on file Obstetrics History Last Filed Vital Signs Vital Sign Reading Time Taken Comments Blood Pressure 125/55 01/21/2025 4:00 PM CDT Pulse 98 01/21/2025 4:00 PM CDT Temperature 37.4 C (99.4 F) 01/21/2025 2:20 PM CDT Respiratory Rate 16 01/21/2025 2:20 PM CDT Oxygen Saturation 98% 01/21/2025 4:00 PM CDT Inhaled Oxygen Concentration - - Weight 63.5 kg (140 lb) 01/21/2025 2:20 PM CDT Height 170.2 cm (5' 7) 01/21/2025 2:20 PM CDT Body Mass Index 21.93 01/21/2025 2:20 PM CDT Plan of Treatment Health Maintenance Due Date Last Done Comments Depression Screening 2001 Hepatitis C Screening 2001 Meningococcal B Vaccine (1 o f 2 - Standard) 2017 Regular Well Visit/Exam 18-64 2019 DTaP/Tdap/Td Vaccine (7 - Td or Tdap) 08/01/2021 08/01/2011, 12/17/2006, 09/15/2002, Additional history exists Influenza Vaccine (#1) 2025 02/26/2018 Hepatitis B Screening Completed 2001 , 2001, 2001, Additional history exists Pneumococcal vaccine <65 Completed 003, 2001, 2001, Additional history exists Varicella Vaccines Completed 09/05/2007, 04/17/2002 HPV Vaccines Completed 03/10/2019, 09/13/2015 Procedures Procedure Name Priority Date/Time Associated Diagnosis Comments EGFR STAT 01/21/2025 2:28 PM CDT DIFFERENTIAL AUTO STAT 01/21/2025 2:2 8 PM CDT SEPSIS LACTATE WITH REFLEX STAT 01/21/2025 2:28 PM CDT COMPREHENSIVE METABOLIC PANEL STAT 01/21/2025 2:28 PM CDT CBC WITH AUTO DIFFERENTIAL STAT 01/21/2025 2:28 PM CDT from Last 3 Months Results * Sepsis Lactate w/ Reflex (01/21/2025 2:28 PM CDT) Sepsis Lactate 2.0 0.7 - 2.0 mmol/L Blood 01/21/2025 2:28 PM CDT 01/21/2025 2:31 PM CDT Windy CAMPOS LAB BLOOD ORDERABLES Madyson l Result [facility]ICA [facility] ([place]) 1 [facility] [place] [address] * eGFR (01/21/2025 2:28 PM CDT) eGFR >90 >=60 mL/min/1. 73 m2 Comment: Interpretive Data Reference Interval Normal >/= 90 mL/min/1.73m2 Mildly decreased* 60 - 89 mL/min/1.73m2 Mildly to moderately decreased 45 - 59 mL/min/1.73m2 Moderately to severely decreased 30 - 44 mL/min/1.73m2 Severely decreased 15 - 29 mL/min/1.73m2 Kidney Failure < 15 mL/min/1.73m2 *Relative to young adult level Estimated glomerular filtration rate is determined by the 2020 CKD-EPI equation recommended by the National Kidney Foundation (A Unifying Approach to GFR Estimation: Recommendations of the NKF-ASK Task Force on Reassessing the Inclusion of Race in Diagnosing Kidney Disease, JASN 2020). The CKD-EPI equation should not be used for patients with unstable renal function and has not been validated in children and those over 70. Current interpretive data was last reviewed 2021. Blood 01/21/2025 2:28 PM CDT 01/21/2025 2:31 PM CDT Windy CAMPOS LAB BLOOD ORDERABLES Madyson l Result [facility] ([place]) 1 [facility] [address] * (ABNORMAL) Differential, auto (01/21/2025 2:28 PM CDT) Neutrophil abs 7.23(H) 1.50 - 6.50 K/cumm Imm gran abs 0.02 0.00 - 0.10 K/cumm [facility] ([place]) Lymphocyte abs 1.74 0.80 - 3.30 K/cumm [facility] ([place]) Monocyte abs 0.30 0.20 - 0.80 K/cumm [facility] ([place]) Eosinophil abs 0.05 0.00 - 0.50 K/cumm [facility] ([place]) Basophil abs 0.05 0.00 - 0.10 K/cumm [facility] ([place]) Neutrophil pct 77.1 % [facility] ([place]) Comment: Interpretive Data Percent cell count reference ranges are not reported, since discordance with absolute values may lead to misinterpretation of CBC data. Current Interpretive Data was last revised on 2017. Imm gran pct 0.2 % [facility] ([place] Comment: Interpretive Data Percent cell count reference ranges are not reported, since discordance with absolute values may lead to misinterpretation of CBC data. Current Interpretive Data was last revised on 2017. Lymphocyte pct 18.5 % [facility] ([place] Comment: Interpretive Data Percent cell count reference ranges are not reported, since discordance with absolute values may lead to misinterpretation of CBC data. Current Interpretive Data was last revised on 2017. Monocyte pct 3.2 % [facility] ([place] Comment: Interpretive Data Percent cell count reference ranges are not reported, since discordance with absolute values may lead to misinterpretation of CBC data. Current Interpretive Data was last revised on 2017. Eosinophil pct 0.5 % [facility] ([place] Comment: Interpretive Data Percent cell count reference ranges are not reported, since discordance with absolute values may lead to misinterpretation of CBC data. Current Interpretive Data was last revised on 2017. Basophil pct 0.5 % [facility] ([place] Comment: Interpretive Data Percent cell count reference ranges are not reported, since discordance with absolute values may lead to misinterpretation of CBC data. Current Interpretive Data was last revised on 2017. Blood 01/21/2025 2:28 PM CDT 01/21/2025 2:31 PM CDT Windy CAMPOS LAB BLOOD ORDERABLES Madyson l Result [facility] ([place]) 1 [facility] [place] [address] * CBC with auto differential (01/21/2025 2:28 PM CDT) WBC 9.39 3.80 - 9.90 K/cumm Hgb 14.1 13.0 - 17.5 g/dL [facility] ([place]) Hct 40.5 38.9 - 50.3 % [facility] ([place]) Plt 249 150 - 400 K/cumm [facility] ([place]) MPV 9.8 9.1 - 12.3 fL [facility] ([place]) RBC 4.56 4.30 - 5.80 M/cumm [facility] ([place]) MCV 88.8 81.3 - 96.4 fL [facility] ([place]) MCH 30.9 27.1 - 33.3 pg [facility] ([place]) MCHC 34.8 32.3 - 35.7 g/dL [facility] ([place]) RDW CV 12.1 11.1 - 14.9 % [facility] ([place]) RDW SD 38.9 35.7 - 48.1 fL [facility] ([place]) NRBC abs 0.00 0.00 - 0.01 K/cumm [facility] ([place]) Blood 01/21/2025 2:28 PM CDT 01/21/2025 2:31 PM CDT Windy CAMPOS LAB BLOOD ORDERABLES Madyson l Result MONICA DOS [facility] ([place]) 1 [facility] [place] [address] * (ABNORMAL) Comprehensive metabolic panel (01/21/2025 2:28 PM CDT) Sodium 135 135 - 145 mmol/L [facility] ([place]) Potassium, pl 3.8 3.3 - 4.9 mmol/L [facility] ([place]) Chloride 99 97 - 110 mmol/L [facility] ([place]) CO2 26 22 - 32 mmol/L [facility]) Anion gap 10 2 - 15 mmol/L [facility] ([place]) BUN 11 6 - 25 mg/dL [facility] ([place]) Creatinine 0.72(L) 0.80 - 1.30 mg/dL [facility] ([place]) Glucose 158 70 - 199 mg/dL [facility] ([place]) Comment: Interpretive Data Fasting glucose >/= 126 mg/dl is diagnostic for diabetes. Fasting is defined as no caloric intake for at least 8 hours. Fasting glucose between 100 mg/dl to 125 mg/dl is diagnostic of prediabetes. In a patient with classic symptoms of hyperglycemia or hyperglycemic crisis, a random glucose >/= 200 mg/dl is diagnostic for diabetes. In the absence of unequivocal hyperglycemia, results should be confirmed by repeat testing. The classification and Diagnosis of Diabetes Diabetes Care 2021; 46: S19-S40. Current interpretive data was last revised 2022. Calcium 9.1 8.5 - 10.3 mg/dL [facility] ([place]) Bilirubin, total 0.7 0.1 - 1.2 mg/dL [facility] ([place]) Protein, pl 7.3 6.5 - 8.5 g/dL [facility] ([place]) Albumin 4.7 3.5 - 5.0 g/dL [facility] ([place]) Alk phos 57 40 - 130 Units/L [facility] ([place]) ALT 14 7 - 55 Units/L [facility] ([place]) AST 21 10 - 50 Units/L [facility] ([place]) Blood 01/21/2025 2:28 PM CDT 01/21/2025 2:31 PM CDT Windy CAMPOS LAB BLOOD ORDERABLES Madyson german Result [facility] ([place]) 1 [facility] [place] [address] from Last 3 Months Insurance [facility] H[facility]/PPO Address: [address] [address] Advance Directives For more information, please contact: [phone] * Full Code (Latest Code Status on File) Date Activated Date Inactivated Comments 07/06/2021 6:23 PM 07/08/2021 9:43 PM Care Teams Assistant Purchasing Manager Relationship Specialty Start Date End Date Miscellaneous, Not In File PCP - General 01/21/25
--- OUTSIDE RECORDS SUMMARY | 2025-02-13 08:16 | XMS_ITS | Clinical Summary ---
Author Organization [facility] Address [address] [place] [address] Phone Care Team Providers Care Touch Up Painter Name Role Phone Heather Cardona PAC Primary Care Pro vider Talha Gonzalez MD Unavailable Allergies Active Allergy Reactions Criticality Noted Date Comments Cephalosporins Hives,Rash,Swelling High 07/10/2015 Penicillins Hives,Rash,Swelling High 07/10/2015 Medications lacosamide 150 MG TabletIndicatio ns:Seizures (HCC) Take 1 Tablet by mouth 2 times daily. 180 Tablet 2 5 Active Brivaracetam (Briviact) 100 MG TabletIndicatio ns:Seizures (HCC) Take 1 Tablet by mouth 2 times daily. 60 Tablet 2 5 Active perampanel (Fycompa) 2 MG TabletIndicatio ns:Seizures (HCC) Take 1 Tablet by mouth nightly for 15 days, THEN 2 Tablets nightly for 75 days. 165 Tablet 5 04/30/20 25 Active Midazolam (Nayzilam) 5 MG/0.1ML SolutionIndicat ions:Seizures (HCC) 5 mg by Nasal route as needed for Other (prolonged seizure or seizure clusters). 2 Each 3 5 Active Brivaracetam (Briviact) 50 MG TabletIndicatio ns:Seizures (HCC) Take 1 Tablet by mouth 2 times daily. 60 Tablet 1 5 01/20/20 25 Discontinu ed(Dose adjustment ) Active Problems Problem Noted Date Diagnosed Date Seizure 11/07/2024 Overview (11/07/2024): NEURO follows STD (male) 11/07/2024 Overview (11/07/2024): October 2024; chlamydia Encounters Date Type Department Care Team Description 01/30/2025 11:00 AM CDT Office Visit [facility] Neurology - [place] [address] [facility] [place] [address] Talha Gonzalez MD Seizures (HCC) (Primary Dx) Discharge Disposition: Discharged to home or Selfcare 01/30/2025 Travel 01/21/2025 Telephone [facility] Neurology - [place] [address] [facility] [place] [address] Trang Monroy APRN, STRINGER MACHINE TENDER 01/19/2025 Telephone [facility] Neurology - [place] [address] [facility] [place] [address] Trang Monroy APRN, STRINGER MACHINE TENDER 01/01/2025 Telephone [facility] Neurology - [place] [address] [facility] [place] [address] Trang Monroy APRN, STRINGER MACHINE TENDER 12/01/2024 1:30 PM CDT Office Visit [facility] Neurology - [place] [address] [facility] [place] [address] Trang Monroy APRN, STRINGER MACHINE TENDER Seizures (HCC) (Primary Dx) Discharge Disposition: Discharged to home or Selfcare 12/01/2024 Telephone [facility] Neurology - [place] [address] [facility] [place] [address] Trang Monroy APRN, STRINGER MACHINE TENDER Medication Management 12/01/2024 Travel 11/24/2024 Telephone [facility] - Neurology - [place] [address] [place] [phone] Talha Gonzalez MD 11/24/2024 Refill [facility] Neurology - [place] [address] [place] [address] Talha Gonzalez MD 11/23/2024 Refill [facility] - Internal Medicine - Branch [address] [place] [phone] Heather Cardona, [facility] Medication Refill from Last 3 Months Immunizations Immunization Administration [...] drink = 0.6 oz pur e alcohol) [facility] Utilities Answer Date Recorded In the past 12 months has e [employer], gas, oil, or water [employer] threatened to shut off services in your home? Yes 10/03/2024 Social Connection and Isolation Panel Answer Date Recorded In a typical week, how many times do you talk on the phone with family, friends, or neighbors? More than three times a week 10/03/2024 How often do you get togethe r with friends or relatives? Twice a week 10/03/2024 How often do you attend chur or confucianist services? 1 to 4 times per year 10/03/2024 Do you belong to any clubs o r organizations such as quaker groups, unions, fraternal or athletic groups, or [...] Total Score - Questions 1-9 18 07/2024 [facility] - Occupational [...] time in the past 12 m [facility], were you homeless or living in a long-term (including now)? No 10/03/2024 Sex and Gender Information Value Date Recorded Sex Assigned at Not on file Legal Sex Male 4:39 PM GENERATING PLANT SUPERINTENDENT Gender Identity Not on file Sexual Orientation Not on file Last Filed Vital Signs Vital Sign Reading Time Taken Comments Blood Pressure 106/60 01/30/2025 10:48 AM CDT Pulse 78 01/30/2025 10:48 AM CDT Temperature 36.6 C (97.8 F) 01/30/2025 10:48 AM CDT Respiratory Rate 17 01/30/2025 10:48 AM CDT Oxygen Saturation 98% 01/30/2025 10:48 AM CDT Inhaled Oxygen Concentration - - Weight 64.5 kg (142 lb 1.6 oz) 01/30/2025 10:48 AM CDT Height 172.7 cm (5' 8) 01/30/2025 10:48 AM CDT Body Mass Index 21.61 01/30/2025 10:48 AM CDT Plan of Treatment Upcoming Encounters Date Type Department Care Team (Late st Contact Info) Description 04/24/2025 10:30 AM GENERATING PLANT SUPERINTENDENT [facility] [address] [place] [address] Talha Gonzalez MD [address] [place] [address] 05/15/2025 1:15 PM GENERATING PLANT SUPERINTENDENT Office Visit [facility] - Primary Care - [place] [address] [place] [phone] Heather Cardona, TREVON [address] [place] [address] Health Maintenance Due Date Last Done Comments Hepatitis C Virus (HCV) Screening 2001 Meningococcal B Immunization (1 of 2 - Standard) 2017 DTaP/Tdap/Td Immunization (7 - Td or Tdap) 08/01/2021 08/01/2011, 12/17/2006, 09/15/2002, Additional history exists Influenza Immunization (#1) 2025 SARS-COV-2 Immunization ( - season) 2025 Respiratory Syncytial Virus (RSV) Immunization (Adult) [...] on patient's age to complete this topic Insurance [facility] Care Teams Touch Up Painter Relationship Specialty Start Date End Date Heather Cardona PAC PCP - General Physician Interim Controller 05/09/24 Talha Gonzalez MD [address] [place] [address] Consulting Physician Neurology 07/09/24
--- OUTSIDE RECORDS SUMMARY | 2025-02-13 08:16 | XMS_ITS | Patient Health Record ---
Author Organization [facility] [facility] Address [address] [place] [address] Support Name Relationship Address Phone LETY GUILLEN Emergency Contact Unknown REHAN GUILLEN Guarantor Unknown [phone] Reason For Referral No Information Medications Medication SIG (Take, Route, Frequency, Duration) Notes Start Date End Date Status Escitalopram Oxalate 10 MG Tablet Oral 06/22/2022 Active levETIRAcetam 500 MG Tablet Oral 06/22/2022 Active Social History Social History Additional Details Category Social Info Options Details Migrated Social History Migrated Social History Alcohol Intake: Occasional 05/22/2022,Tobacco Years: Former smoker 05/22/2022 Plan Of Treatment No Information Insurance Providers Payer Name Payer Address Payer Phone Subscriber Number Group Number Insured Name Patient Relationship to Insured Coverage Start Date Coverage End Date [id number] Ppo-DNU 1 ANA [facility] [place] [address] [facility] [place] [id number] LETY GUILLEN [facility] Child - Insured has Financial Responsibility Medical (General) History Surgical History Surgery Date(Month/Year) Tonsilectomy/adenoids
--- OUTSIDE RECORDS SUMMARY | 2025-02-13 08:16 | XMS_ITS | Encounter Summary ---
Author Organization [facility] Address [address] [place] [address] Phone Care Team Providers Care Ehs Teacher Name Role Phone BrendanHeatherelle PAC Primary Care Pro vider Talha Gonzalez MD Unavailable [phone] Carlee Wallace PHYSICIAN SPECIALIST Unavailable Unavailab le Reason for Visit * Reason Comments Medication Refill Encounter Details Date Type Department Care Team (Late st Contact Info) Description 07/31/2024 Refill [facility] - Neurology [facility] [address] [place] [address] Talha Gonzalez MD [address] [place] [address] Medication Refill Social History Tobacco Use Types Packs/Day Years Used Date Smoking Tobacco: Never Smokeless Tobacco: Never Alcohol Use Standard Drinks/Week Comments Not Currently 0 (1 standard drink = 0.6 oz pur e alcohol) [facility] Utilities Answer Date Recorded In the past 12 months has [employer] electric, gas, oil, or water company threatened to shut off services in your home? Yes 05/09/2024 Social Connection and Isolation Panel Answer Date Recorded In a typical week, how many times do you talk on the phone with family, friends, or neighbors? More than three times a week 05/09/2024 How often do you get togethe r with friends or relatives? More than three times a week 05/09/2024 How often do you attend chur ch or yarsanism services? Patient declined 05/09/2024 Do you belong to any clubs o r organizations such as christian groups, unions, fraternal or athletic groups, or [...] Total Score - Questions 1-9 8 11/2023 [facility] ional [facility] - Occupational [...] any time in the past [address] [facility], were you homeless or living in a assisted (including now)? No 05/09/2024 Sex and Gender Information Value Date Recorded Sex Assigned at Not on file Legal Sex Male 4:39 PM CORRECTIONAL SUPERVISOR LIEUTENANT Gender Identity Not on file Sexual Orientation Not on file documented as of this encounter Plan of Treatment Upcoming Encounters Date Type Department Care Team (Late st Contact Info) Description 04/24/2025 10:30 AM CORRECTIONAL SUPERVISOR LIEUTENANT Office Visit [facility] - Neurology [facility] [address] [place] [address] Talha Gonzalez MD [address] [place] [address] 05/15/2025 1:15 PM CORRECTIONAL SUPERVISOR LIEUTENANT Office Visit [facility] - Primary Care - [place] [address] [place] [phone] Heather Cardona PAC [address] [place] [address] documented as of this encounter Visit Diagnoses Diagnosis Seizures (HCC) Other convulsions documented in this encounter Additional Health Concerns Assessment Noted Time PHQ-9 Depression Total Score: 8 05/09/20 24 2:10 PM CORRECTIONAL SUPERVISOR LIEUTENANT documented as of this encounter Care Teams Ehs Teacher Relationship Specialty Start Date End Date Heather Cardona PAC PCP - General Physician Underwear Trimmer 05/09/24 Talha Gonzalez MD [address] [place] [address] Consulting Physician Neurology 07/09/24 Carlee Wallace LSW [place] Baler Lithographic Etcher 10/06/24 10/09/24 documented as of this encounter
[2025-02-13] MEDS: IPRATROPIUM 0.5 MG/ALBUTEROL SULFATE 2.5 MG AMPUL.NEB 3 ML INHALATION (08:26)
[2025-02-13 08:28] VITALS: PULSE 103; RESP 22; O2SAT 94
[2025-02-13 08:41] VITALS: PULSE 104; RESP 22; O2SAT 96
[2025-02-13 08:41] LABS: EDCOVIDSCREEN Negative (Negative); EDINFLUASCREEN Negative (Negative); EDINFLUBSCREEN Negative (Negative)
== END 2025-02-13 09:02 | disposition home or self-care (01) ==
PROVIDERS: Emergency Provider Nurse Practitioner Family
DX: J45.901 Unspecified asthma with (acute) exacerbation (principal); Z20.822 Contact with and (suspected) exposure to COVID-19
CPT/HCPCS: 87426; 87804; 94640; 99213; G0463

== ENCOUNTER 2025-03-11 12:31 | Emergency (ER) | payer OTHER, SELFPAY ==
--- NOTE | 2025-03-11 13:09 | ED.EYEPROB ---
HPI - Eye Problem General Chief complaint: Eye Problems Stated complaint: Right Eye Problem Time Seen by Provider: 03/11/25 13:09 Source: patient, RN notes reviewed and old records reviewed Mode of arrival: ambulatory Limitations: no limitations History of Present Illness HPI Narrative: 24 year old male who presents to [facility] care with complaints of right eye irritation since getting some Doritos crumbs in his right eye when he was eating a bag of chips while driving and tipped bag up with some crumbs going into his right eye. He states that he still has some mild discomfort to his right eye this morning. Patient reports that he flushed his eye out twice last evening. Patient reports no visual difficulty, denies increased watering from right eye or any foreign body sensation in his right eye, no redness noted to his right eye. MD chief complaint: other (irritation to right eye) Onset (ago): day(s) (aince last evening) Eye Symptoms: other (discomfort) Severity: mild Treatments Prior to Arrival: irrigated eye Related Data Home Medications ?Medication ?Instructions ?Recorded ?Confirmed ?Last Taken ?Type lacosamide 100 mg tablet mg 11/05/24 Unknown History brivaracetam 100 mg tablet mg PO 02/13/25 Unknown History (Briviact) Allergies Allergy/AdvReac Type Severity Reaction Status Date / Time Cephalosporins Allergy Severe Other Verified 02/13/25 08:23 Penicillins Allergy Severe Other Verified 02/13/25 08:23 Review of Systems Review of Systems: CONSTITUTIONAL: Denies fever, chills, or sweats. EYES: Denies visual changes, denies any increased watering from right eye, denies any foreign body sensation no drainage noted or any redness of right eye, states mild discomfort to his right eye ENT: Denies rhinorrhea, congestion, sore throat, or otalgia. CARDIOVASCULAR: Denies chest pain, palpitations, or edema. RESPIRATORY: Denies cough or dyspnea. SKIN: Denies rash or itching. NEUROLOGIC: Denies headache All systems reviewed & are unremarkable except as noted in HPI and below PMFSH Past Medical History Medical History (Updated 03/12/25 @ 14:37 by Jaycee Flanagan NP) Seizures Asthma Surgical History Surgical History (Updated 03/12/25 @ 14:22 by Jaycee Flanagan NP) History of tonsillectomy and adenoidectomy Social History Social History (Updated 03/12/25 @ 14:27 by Jaycee Flanagan NP) Smoking status: Current every day smoker Tobacco type: e-cigarettes/vaping Alcohol intake: unknown Substance use: unknown Gender identity (if verbalized by the patient): Male Comments At time of signature, agree with nursing past medical, surgical, social and family history. There is no relevant family history pertinent to the presenting complaint Exam Narrative: GENERAL: Well-appearing, well-nourished, and in no acute distress. HEAD: Normocephalic, atraumatic. EYES: PERRLA and EOMI. Upper and lower eyelids unremarkable. No periorbital cellulitis noted. Sclera and conjunctivae are clear with no redness, no drainage noted or increased watering denies any visual deficit.Eye examined using magnification with no foreign body noted, no redness of eye noted, ENT: Nares clear, no rhinorrhea or epistaxis. Mucous membranes moist. NECK: Supple.no lymphadenopathy CHEST: Clear to auscultation. No respiratory distress. HEART: Regular rate and rhythm. No murmur heard. Normal peripheral pulses. SKIN: Warm, dry, no rash. NEURO: No focal deficits. Alert and oriented x3. Course Course Emergency Course: Patient is aware of diagnosis, understands and agrees to treatment plan. Anticipatory guidance given. Patient agrees to follow-up as directed and is aware of reasons to seek care at the emergency department. Portions of this record may have been created with voice recognition software Level of Care: Express Care Visit Vital Signs Vital signs: Reviewed MDM - Eye Problem MDM Narrative Medical decision making narrative: Consideration of the following conditions may be warranted for the presenting problem, they are not final diagnoses: Bacterial conjunctivitis, allergic conjunctivitis, viral conjunctivitis, foreign body, blepharitis, chalazion, hordeolum, corneal abrasion.? Exam findings show no acute concerns or changes; patient is non-toxic appearing and is in no distress.? Patient is appropriate for outpatient treatment and follow-up. Differential Diagnosis Differential diagnosis: Likely subconjunctival hemorrhage and other (right eye irritation, irritative conjunctivitis) Medical Records Attestation: I reviewed the patient's medical records. Critical Care Time Critical Care Time Critical Care Time: No Discharge Plan Discharge Clinical Impression: Irritation of right eye Conjunctivitis Qualifiers: Conjunctivitis type: other Laterality: right Qualified Code(s): H10.89 - Other conjunctivitis Patient Disposition: Home Condition: Stable Instructions: Conjunctivitis (ED) Additional Instructions: Cold compresses to the eyes for comfort May need warm compresses to remove debris in the morning When cleaning the eyes used a washcloth in one direction then change washcloths or use a cotton ball in one direction and then his cotton balls Eyedrops as directed--may be more soothing if left in the refrigerator Do not share medicine--do not touch the eye with the medicine Tylenol or ibuprofen for pain Avoid screen time--television, computer, tablet or phone. Also no reading or driving Follow-up with PCP or retail inventory control clerk as directed if no resolution 48 hours Patient Language: Latvian Prescriptions: New olopatadine [Pataday Once Daily Relief] 0.2 % drops 1 drp EACH EYE DAILY PRN (Reason: itching) Qty: 5 0RF Rx Instructions: use 2-3 times daily for one week then prn No Action lacosamide 100 mg tablet Briviact 100 mg tablet PO Airsupra 90-80 mcg/actuation HFA aerosol inhaler 2 inh inhalation ONCE Qty: 10.7 2RF Rx Instructions: may repeat up to 6 doses per day (12 puffs in 24 hours) albuterol sulfate 90 mcg/actuation HFA aerosol inhaler 2 inh inhalation QID PRN (Reason: shortness of breath or wheezing) Qty: 8.5 0RF Follow-up/Referrals: UNKNOWN,DOCTOR [Primary Care Provider] Time of Disposition: 13:26 Quality [place] Coma Scale Eyes: Open Verbal: Oriented and Alert Motor: Follows Commands [place] Coma Total Score: 15
== END 2025-03-11 13:30 | disposition home or self-care (01) ==
PROVIDERS: Emergency Provider Registered Nurse
DX: H57.11 Ocular pain, right eye (principal); H10.89 Other conjunctivitis; F17.290 Nicotine dependence, other tobacco product, uncomplicated; G40.909 Epilepsy, unspecified, not intractable, without status epilepticus; J45.909 Unspecified asthma, uncomplicated
CPT/HCPCS: 99213; G0463